=== PATIENT | male | born 1995 ===

== ENCOUNTER 2017-08-05 02:18 | Inpatient (IN) | payer OTHER ==
[2017-08-05] MEDS ORDERED: ONDANSETRON 4 MG/2 ML VIAL ONE (02:20)
[2017-08-05] MEDS ORDERED: MIDAZOLAM 2 MG/2 ML VIAL IVP ONE (02:25)
[2017-08-05] MEDS ORDERED: NS 1,000 ML IV ONE ×2 (02:25→02:30)
[2017-08-05] MEDS ORDERED: ONDANSETRON 4 MG/2 ML VIAL IVP ONE (02:30)
[2017-08-05] MEDS ORDERED: ETOMIDATE 40 MG/20 ML INJ IVP ONE (02:30)
[2017-08-05] MEDS ORDERED: SUCCINYLCHOLINE CHLORIDE 200 MG/10 ML VIAL IVP ONE (02:30)
[2017-08-05 02:35] LABS: % IMMATURE GRANULYOCYTES 0.4 % (0.0-1.1); ABSOLUTE IMMATURE GRANULOCYTES 0.05 10^3/uL (0.00-0.10); ADD DIFF? NO; ADD MORPH? NO; ADD SCAN? NO; ATYPICAL LYMPHOCYTE FLAG 10 (0-99); FRAGMENT RBC FLAG 0 (0-99); HEMATOCRIT 48.4 % (40.0-51.0); LEFT SHIFT FLG 0 (0-99); LIPEMIA HEMOLYSIS FLAG 90 (0-99); MEAN CELL HEMOGLOBIN 33.4 pg (27.9-34.1); MEAN CELL HEMOGLOBIN CONCENTR. 35.1 g/dL (32.4-36.7); MEAN CELL VOLUME 95.1 fL (81.5-99.8); MEAN PLATELET VOLUME 8.4 fL (8.7-11.7); PLATELET CLUMPS FLAG 0 (0-99); PLATELET COUNT 327 10^3/uL (150-400); RED BLOOD CELL COUNT 5.09 10^6/uL (4.40-6.38); RED CELL DISTRIBUTION WIDTH 11.6 % (11.5-15.2)
--- NOTE | 2017-08-05 02:38 | EDPHY ---
H & P HPI/ROS: HPI CHIEF COMPLAINT: Full trauma activation, GCS 3, unresponsive HISTORY OF PRESENT ILLNESS: This patient 22-year-old male, brought in by EMS as a full trauma activation. Per EMS report the patient was out drinking this evening and also abusing Adderall. He was witnessed by friends going to jump up and touch a sign or tree branches, when he jumped up to touch sign he fell forward and directly he hit his head on the ground. He has right eyebrow hematoma. Upon arrival to the emergency room he has a GCS at 6. He is agitated, combative. Does not follow commands. Will not stay still. He is highly intoxicated with alcohol smells of a vomit. There is vomit noted to be all over his clothes. He arrives in a cervical collar. +LOC. Upon arrival he has greeted in ER room 2 by myself as well as Dr. Ya. He is noted to be extremely agitated combative upon arrival. Due to airway protection, and need for emergency medical testing including CT scan head and neck, he was emergently intubated by myself using RSI medications. 20 mg IV etomidate, 100 mg of IV succinylcholine, and with direct laryngoscopy MAC 4 blade with direct visualization of the cords he was intubated with a 7.5 endotracheal tube. This tube was confirmed with humidified air, bilateral lung sounds, end-tidal change, and chest x-ray to confirm placement. Past Medical History: Unknown medical history Past Surgical History: Unknown surgical history Social History: Unknown but per EMS large amount of alcohol on Adderall this evening. Family History: Noncontributory ROS REVIEW OF SYSTEMS: Limited due to patient's presentation. Intoxication. Possible head injury.. Exam Constitutional GCS of less than 6, combative, agitated, does not follow commands triage nursing summary reviewed, vital signs reviewed Eyes normal conjunctivae and sclera, EOMI, Pupils: 5mm Right, 4mm left. HENT Head/neck: Right eyebrow hematoma present, no globe trauma on exam, no hemotympanum, moist mucus membranes, no epistaxis, neck supple/ no meningismus, no raccoon eyes. Face: Small <1cm through and through lower right sided lip lac. Respiratory clear to auscultation bilaterally, normal breath sounds, no respiratory distress, no wheezing. Cardiovascular rate normal, regular rhythm, no murmur, no edema, distal pulses normal. Gastrointestinal soft, non-tender, no rebound, no guarding, normal bowel sounds, no distension, no pulsatile mass. Genitourinary no CVA tenderness. Musculoskeletal no midline vertebral tenderness, full range of motion, no calf swelling, no tenderness of extremities, no meningismus, good pulses, neurovascularly intact. Skin pink, warm, & dry, no rash, hematoma right eyebrow Neurologic Agitated, combative, moves all 4 extremities equally, motor intact, sensory intact, CN II-XII intact, normal cerebellar, normal vision, normal speech. Psychiatric normal mood/affect. Heme/Lymph/Immune no lymphadenopathy. Differential Diagnosis: Includes but is not limited to in a particular order acute alcohol intoxication, drug intoxication, closed head injury, intracranial bleed, skull fracture, subdural, epidural, traumatic subarachnoid, cervical spine injury Medical Decision Making: Plan for this patient he was emergently intubated for airway protection, he had a negative fast exam, vital signs are stable. Plan on CT head without contrast and CT cervical spine without contrast for acute trauma. Re-evaluation: 0235AM: FAST EXAM: negative. ED x-ray chest one view: Endotracheal in good position above the mildred. Bilateral lung gallego appear fully inflated no pneumothorax no infiltrate. Good position of endotracheal tube. 0237: The patient's friends arrived in the emergency room they report that they just left the bar. 1 of them picked him up they were trying to hit tree branches when 1 of them picked him up he fell forward landing on his head. 0244: Patient is in CT scan with Dr. Ya at this time. Hemodynamically stable. He sedated. Intubated. On ventilator. Obtaining CT head and neck for trauma. He will come back from CT and then most likely go to ICU. Laceration Repair Procedure: Under sterile conditions, The patient had lidocaine with epinephrine used approximately 2ccs to local anesthetize the right lower lateral lip laceration through and through less than 1 cm Laceration. The wound was copiously irrigated with sterile fluid, the wound was explored for foreign bodies there were none visualized, the wound was explored with a sterile glove to the base. There are no deep structures involved, including no arterial injury. ONE interrupted 6.O PROLENE Suture were placed in this patient's laceration. Additionally, <1cm Inner-oral right lower lip lac, through-through ONE interrupted 6.O absorbable gut suture was placed, He had good close approximation of the wound edges. He Tolerated this well. 0330: CT scans of the head and neck called to me by Dr. Jimenez the patient has the following injuries Patient has a lateral wall maxillary sinus fracture, he has a superior lateral nondisplaced orbital fracture, additionally has orbital floor fracture on the right he does not have any contents that goes through the orbital floor fracture. 0334; Spoke with Neurosurgery. Dr. Santa with NeuroSurgery; patient has 2 punctate lesions on the temporal lobes these were equivocal on the CT scan. Notified by Dr. Jimenez that these are equivocal there is no significant intracranial bleed or shift. I have notified Neurosurgery about this. I have discussed this case with Trauma surgery and do not feel that Neurosurgery needs to emergently see this patient at this time. Will plan on admission to the ICU repeat CT scan in 4 hr. Neurosurgery to see in the morning. Additionally this patient has multiple facial fractures I will consult ENT. Does have a orbital floor fracture. There are no contents do this orbital floor will consult ENT for this. 0342: Dr. Buchanan: ENT consult. Will consult in the morning. Critical Care: Total Critical Care Time Spent Managing this Patient: 65 Minutes. This time was spent Exclusively with this patient. This Care was exclusive of procedures. The Organ System/life at risk was Full trauma activation, respiratory failure, alcohol intoxication This Patient was in Critical Condition because patient in critical condition due to respiratory failure, acute alcohol intoxication, facial fractures, closed head injury, intracranial bleed. Source: EMS Constitutional: Initial Vital Signs Heart Rate 94 08/05/17 03:47 Respiratory Rate 18 08/05/17 03:47 Blood Pressure 140/80 H 08/05/17 03:47 O2 Sat (%) 96 08/05/17 03:47 O2 Delivery Mode Nasal Cannula O2 (L/minute) 2 Allergies/Adverse Reactions: No Known Allergies Allergy (Unverified 08/05/17 02:49) Home Medications: Medication Instructions Recorded Herbals/Supplements -Info Only 1 ea PO DAILY 08/06/17 Medical Decision Making - Data Points Laboratory Results: Laboratory Results 08/05/17 02:25 08/05/17 02:25 Medications Given: Acetaminophen (Tylenol) 650 mg PO Q4HRS PRN PRN Reason: Pain, Mild/Fever, Can Take PO Stop: 02/01/18 21:49 Last Admin: 08/05/17 21:59 Dose: 650 mg Famotidine (Pepcid) 20 mg PO BID [facility] Stop: 02/02/18 09:14 Last Admin: 08/06/17 09:59 Dose: 20 mg Hydromorphone/Sodium Chloride (Hydromorphone) 0.4 mg IVP Q2H PRN PRN Reason: Pain, Severe Unable to Take PO Stop: 08/15/17 18:48 Last Admin: 08/05/17 20:47 Dose: 0.4 mg Ondansetron HCl (Zofran) 4 mg IVP Q4HRS PRN PRN Reason: Nausea/Vomiting, Can't Take PO Stop: 02/01/18 02:49 Last Admin: 08/05/17 18:15 Dose: 4 mg Discontinued Medications Chlorhexidine Gluconate (Peridex) 15 ml PO Q12@08,20 [facility] Stop: 02/01/18 07:59 Last Admin: 08/06/17 10:43 Dose: Not Given Etomidate (Etomidate) 20 mg IVP EDNOW ONE Stop: 08/05/17 02:31 Last Admin: 08/05/17 02:30 Dose: 20 mg Fentanyl (Sublimaze) 50 mcg IVP EDNOW ONE Stop: 08/05/17 02:50 Last Admin: 08/05/17 02:50 Dose: 50 mcg Sodium Chloride (Ns) 1,000 mls @ 0 mls/hr IV ONCE ONE PRN Reason: Wide Open Stop: 08/05/17 02:31 Last Admin: 08/05/17 03:15 Dose: 1,000 mls Sodium Chloride (Ns) 1,000 mls @ 0 mls/hr IV ONCE ONE; Wide Open PRN Reason: Protocol Stop: 08/05/17 02:26 Last Admin: 08/05/17 02:25 Dose: 1,000 mls Famotidine/Sodium Chloride (Pepcid 20 Mg (Premix)) 50 mls @ 200 mls/hr IV Q12HRS [facility] Stop: 02/01/18 08:59 Last Admin: 08/06/17 10:43 Dose: Not Given Fentanyl/Sodium Chloride (Fentanyl 10 Mcg/Ml (Premix)) 100 mls @ 0 mls/hr IV CONT LEEANN; Per Protocol PRN Reason: Protocol Stop: 08/15/17 02:59 Last Admin: 08/05/17 04:47 Dose: 100 mls Lactated Ringer's (Lr) 1,000 mls @ 125 mls/hr IV CONT LEEANN Stop: 02/01/18 02:59 Last Admin: 08/06/17 06:24 Dose: 1,000 mls Propofol (Diprivan 10 Mg/Ml (Premix)) 100 mls @ 0 mls/hr IV CONT LEEANN; Per Protocol PRN Reason: Protocol Stop: 02/01/18 02:59 Last Admin: 08/05/17 07:47 Dose: 100 mls Midazolam HCl (Versed) 4 mg IVP EDNOW ONE Stop: 08/05/17 02:26 Last Admin: 08/05/17 02:25 Dose: 4 mg Ondansetron HCl (Zofran) 4 mg IVP EDNOW ONE Stop: 08/05/17 02:31 Last Admin: 08/05/17 02:30 Dose: 4 mg Succinylcholine Chloride (Quelicin) 100 mg IVP EDNOW ONE Stop: 08/05/17 02:31 Last Admin: 08/05/17 02:30 Dose: 100 mg Departure - Departure Disposition: [facility] Inpatient Acute Clinical Impression: Respiratory failure Qualifiers: Chronicity: acute Respiratory failure complication: hypoxia Qualified Code(s): J96.01 - Acute respiratory failure with hypoxia Alcohol intoxication Qualifiers: Complication of substance-induced condition: uncomplicated Qualified Code(s): F10.920 - Alcohol use, unspecified with intoxication, uncomplicated Head injury Qualifiers: Encounter type: initial encounter Qualified Code(s): S09.90XA - Unspecified injury of head, initial encounter Lip laceration Qualifiers: Encounter type: initial encounter Qualified Code(s): S01.511A - Laceration without foreign body of lip, initial encounter Traumatic hematoma of forehead Qualifiers: Encounter type: initial encounter Qualified Code(s): S00.83XA - Contusion of other part of head, initial encounter Orbital fracture Qualifiers: Encounter type: initial encounter Fracture type: closed Qualified Code(s): S02.80XA - Fracture of other specified skull and facial bones, unspecified side , initial encounter for closed fracture Condition: Critical
[2017-08-05 02:46] LABS: ANION GAP 25 mEq/L (8-16); CALCIUM 9.7 mg/dL (8.5-10.4); CARBON DIOXIDE 19 mEq/l (22-31); CHLORIDE 109 mEq/L (97-110); CREATININE 1.1 mg/dL (0.7-1.3); ETHANOL SERUM 225 mg/dL (0-10); GLOMERULAR FILTRATION RATE > 60; GLUCOSE 135 mg/dL (70-100); POTASSIUM 4.9 mEq/L (3.5-5.2); SODIUM 153 mEq/L (134-144)
[2017-08-05 02:47] LABS: INR 1.01 (0.83-1.16); PROTIME(PATIENT) 13.5 SEC (12.0-15.0)
[2017-08-05] MEDS ORDERED: fentaNYL 100 MCG/2 ML INJ IVP ONE (02:49)
[2017-08-05] MEDS ORDERED: NALOXONE HCL 0.4 MG/ML INJ IVP PRN (02:50)
[2017-08-05] MEDS ORDERED: fentaNYL/NACL 100 ML IV SCH (03:00)
[2017-08-05 03:35] LABS: PHENCYCLIDINE URINE BCH < 6 ng/ml (NEGATIVE); PHENCYCLIDINE URINE BCH NEGATIVE (NEGATIVE); TETRAHYDROCANNABINOL URINE < 5 ng/mL (NEGATIVE); TETRAHYDROCANNABINOL URINE NEGATIVE (NEGATIVE)
[2017-08-05] MEDS: PROPOFOL/EMULSION 100 ML IV SCH ×2 (03:44→07:47)
--- NOTE | 2017-08-05 03:44 | GHP ---
[f rep st] HISTORY AND PHYSICAL DATE OF ADMISSION: 08/05/2017 CHIEF COMPLAINT: Full trauma activation fall. HISTORY OF PRESENT ILLNESS: The patient is a 22-year-old, who was drinking at some bars earlier this evening. As he was walking, his friends were jumping and hitting tree branches. At one point, one of his friends gave him a boost to hit a sign, when he landed on his feet and then fell forward and hit his head. He had loss of consciousness. He was brought in as a full trauma activation. Per report, he had unequal pupils. He was combative in the ER and was intubated. PAST MEDICAL HISTORY: Unobtainable. PAST SURGICAL HISTORY: Unobtainable. SOCIAL HISTORY: He does drink alcohol. There is question if he was abusing Adderall this evening as well. FAMILY HISTORY: Noncontributory. REVIEW OF SYSTEMS: Unable to be obtained. PHYSICAL EXAMINATION: VITALS: Reviewed and hemodynamically stable. NEURO: Initial GCS was 6. He was moving all extremities. HEENT: Normocephalic. His head has a large amount of dried blood and vomit on it. When I evaluated him, his pupils were equal and round. He did not have otorrhea or rhinorrhea. He has a through and through lower lip laceration on the right lower lip. Dentition grossly intact. He has right periorbital ecchymosis. NECK: Collar in place. No step-offs. BACK: No abrasions, no step-offs. LUNGS: Clear to auscultation bilaterally. No increased work of breathing. CARDIAC: Tachycardic. No edema ABDOMEN: He is soft, nontender, nondistended. EXTREMITIES: No obvious gross bony deformities. Excellent and equal strength prior to intubation. SKIN: No obvious rashes or abrasions. FAST exam performed by me, and there was no fluid between the liver and the kidney, none between the spleen and the kidney, the bladder was intact and full , and there was no pericardial effusion. FAST was negative. I also reviewed his chest x ray. ET tube above the mildred. No hemo or pneumothorax. IMPRESSION AND PLAN: The patient is a 22-year-old man, intoxicated, status post a fall from standing where he struck his head. He was intubated in the emergency room due to his GCS and being combative. We took him to the CT scan for a head CT and C-spine CT. The reads are pending. He does have a right orbital and maxillary fracture. He will be in the ICU. We will perform a urine drug intoxication. I am hopeful that he will be able to be extubated in the morning. Cog eval in the morning. Prelim read on CT with possible IPH - Dr. Santa to consult in the am Maxillary and orbital fracture - I will call Dr. Buchanan in the am May also need optho consult - no obvious injury. When extubated and cooperative , will be better to determine this Tertiary survey after extubation Lip lac repaired by Dr. Fernández. Continue swish and spit post extubation. Chromic sutures will fall out /[id number]/MODL MTDD
[2017-08-05] MEDS: LR 1,000 ML IV SCH ×3 (04:46→21:58)
[2017-08-05 04:57] LABS: BASE EXCESS -5.7 mEq/L (-2.5-2.5); BICARBONATE 18 mEq/L (22-26); MEASURED OXYGEN SATURATION 90 % (92-95); PCO2 32 mmHg (34-38); PO2 62 mmHg (65-75); TCO2 19 mEq/L (23-27)
[2017-08-05] MEDS ORDERED: ETOMIDATE 40 MG/20 ML INJ ONE (04:59)
[2017-08-05] MEDS ORDERED: fentaNYL 100 MCG/2 ML INJ ONE (04:59)
[2017-08-05] MEDS ORDERED: SUCCINYLCHOLINE CHLORIDE 200 MG/10 ML SYR IVP ONE (04:59)
[2017-08-05] MEDS ORDERED: MIDAZOLAM 2 MG/2 ML VIAL ONE ×2 (04:59→05:00)
[2017-08-05 05:00] LABS: O2 CONCENTRATIION 40 % (0-100); P/F RATIO 155 RATIO; SIMV YES
[2017-08-05 05:01] LABS: PATIENT RATE 16; PIP 15.5; PRESSURE SUPPORT 7
[2017-08-05] MEDS: FAMOTIDINE 20 MG/NACL 50 ML IV SCH ×2 (09:23→20:48)
[2017-08-05] MEDS: CHLORHEXIDINE GLUCONATE 15 ML UDL PO SCH ×2 (09:23→20:47)
--- NOTE | 2017-08-05 10:04 | GCON ---
[f rep st] CONSULTATION LINE MAINTAINER SECTION CONSULTATION REASON FOR ADMISSION: Multitrauma, acute respiratory failure, alcohol intoxication. HISTORY OF PRESENT ILLNESS: The patient is a 22-year-old white male with unknown past medical histor y. He apparently was drinking heavily. They were walking, jumping up and hitting tree branches. Ap parently, he was given a boost by one of his friends, landed on his feet and then fell forward, reynaldo ng on his head. He had loss of consciousness. He was brought to the emergency room via full trauma activation. He was subsequently intubated, placed on mechanical ventilation. All history is gleaned from the medical record. PAST MEDICAL HISTORY: Unobtainable. PAST SURGICAL HISTORY: Unobtainable. SOCIAL HISTORY: No history of tobacco use. Significant alcohol use. FAMILY HISTORY: Noncontributory. REVIEW OF SYSTEMS: A 10-point review of systems was attempted, but unable to be obtained. PHYSICAL EXAM: VITAL SIGNS: Blood pressure is 103/44, pulse 64, respirations 16, temperature 37, ox ygen saturation is 40% on current mechanical ventilation. GENERAL: He is a well-developed, well-nou rished, 22-year-old white male, who is sedated and on mechanical ventilation. HEENT: Eyes are PERRL A, EOMI. His right orbit is significantly bruised and swollen. NECK: The patient is in a hard C-co llar. Throat endotracheal tube is in good position. HEART: Regular rate and rhythm without murmurs , rubs, gallops. LUNGS: Clear to auscultation. No wheeze or rhonchi. ABDOMEN: Soft, nontender. Bowel sounds are present. EXTREMITIES: No clubbing, cyanosis, or edema. LABORATORIES: White count 12.7, hemoglobin 17, hematocrit 48, platelet count 327, INR is 1.01. Sodi um 153, potassium is 4.9, chloride 109, CO2 is 19, BUN is 18, creatinine 1.1, glucose is 135. Urine drug screen is positive for benzodiazepines, cocaine. Alcohol level is 225. Arterial blood gas, pH 7.37, pCO2 32, PO2 of 62, bicarb of 19, oxygen saturation 90%. This is on IMV of 16. Tidal volume 550, +5 of PEEP, +7 of pressure support 40%. Chest x-ray, interpreted by me, shows endotracheal tube is in good position. Otherwise, clear. CT s can of the head shows right-sided facial bone fractures. Possible foci of petechial hemorrhage. IMPRESSION: 1. Alcohol intoxication. 2. Closed head injury. 3. Orbital fractures. 4. Acute respiratory failure secondary to above. 5. Hypernatremia. 6. Mild respiratory alkalosis. RECOMMENDATIONS: 1. We will continue mechanical ventilation for now. We will decrease the rate at this time. 2. Continue current sedation. 3. We will assess the patient for extubation in the near future. 4. DVT and PE prophylaxis. 5. Stress ulcer prophylaxis. 6. Follow sodium closely. 35 minutes of critical care time spent with the patient. Case was discussed with Respiratory Therapy , Surgery and Nursing. /[id number]/MODL
--- NOTE | 2017-08-05 10:09 | GCON ---
[f rep st] CONSULTATION NEUROSURGERY CONSULTATION CHIEF COMPLAINT: Status post fall while intoxicated. HISTORY OF PRESENT ILLNESS: Much of the patient's medical history is obtained from the medical recor d as the patient is unable to provide. He is currently intubated and sedated. Per report, the patie nt is a 22-year-old male who was drinking at some bars earlier last night. He and his friends were j umping and trying to reach the tops of tree branches. His friends gave him a boost to jump and he la nded on his feet and fell forward and hit his head. He had loss of consciousness and was brought and is a full trauma activation. Per report, he had unequal pupils. He was combative in the ER and was intubated. His GCS was determined to be 6. PAST MEDICAL HISTORY/PAST SURGICAL HISTORY: Unobtainable. SOCIAL HISTORY: Positive for alcohol use. There was question if he was abusing Adderall that evenin g as well. FAMILY HISTORY: Unobtainable. REVIEW OF SYSTEMS: Unobtainable. PHYSICAL EXAMINATION: Blood pressure 103/44, heart rate 64, O2 saturation is 98%. He is intubated. Temperature is 37 Celsius. In general, this is a young male patient who is currently intubated on s edation. He has an ice pack over his right eye. His eyelid has significant periorbital edema and ec chymosis. The patient's pupils are equal, but nonreactive at about 2 mm. Respiratory therapy suctio dhara the patient and he withdrew with all 4 extremities and reached for his ET tube. He is currently not following any commands but is currently sedated. LABORATORY DATA: White blood cells 12.77, red blood cells 5.09, hemoglobin 17.0, hematocrit 48.4, MC V is 95.1, RDW 11.6, platelet count 327. Coagulation: PT is 13.5, INR is 1.01, APTT is 27.0. Blood gas: Temperature 36.3, pCO2 32, PO2 62, total carbon dioxide 19, pH 7.37, PO2 to FiO2 ratio 155, HC O3 18, O2 saturation 90, base excess -5.7, O2 concentration 40%, actual respiratory rate 16. Catering Staff Member ry: Sodium is 153, potassium 4.9, chloride 109, carbon dioxide 19, anion gap 25, BUN 18, creatinine 1.1. GFR greater than 60. Glucose 135, calcium 9.7. Toxicology negative for opiates, negative for barbiturates, negative for phencyclidine, negative for amphetamine. Benzodiazepine 749. Cocaine scr een 1251. Marijuana THC screen is negative. Alcohol level 225. IMAGING: CT of the cervical spine without contrast negative for fracture or soft tissue air adjacent to the right clavicle of uncertain etiology or significance. CT of the head without contrast, right -sided facial bone fractures as detailed above. Possible foci of petechial hemorrhage with followup CT recommended. IMPRESSION: This is a 22-year-old male patient status post fall while intoxicated with questionable brain hemorrhage. PLAN: The patient was seen evaluated by both Dr. Santa and myself this morning. Dr. Santa has rev iewed the patient's CT of the head without contrast. He does not feel that there is any significant abnormality or any true hemorrhage observed on the head CT. Given the patient's young age we would h old on any further head CTs at this time. We would like to let the patient sober up and work toward extubation and examine him more thoroughly at that time. Once the patient is awake, he should be see n by Physical Therapy, Occupational Therapy, and also Speech Therapy. Neurosurgery will continue to follow along this patient. Thank you for the consultation. Please contact the neurosurgery service with any additional questions or concerns. /[id number]/MODL
--- NOTE | 2017-08-05 10:38 | SOAPPROG ---
SOAP Progress Note Assessment/Plan: Assessment: 22-year-old male status post fall resulting in the maxillary/orbital wall fracture, closed head injury, lip laceration, alcohol intoxication, positive for cocaine Physical exam Intubated and sedated C-collar in place No obvious trauma upon inspection of extremities chest abdomen Chest CTA bilaterally Abdomen soft nontender Plan: Patient seen examined by Dr. Bacon Plan is for weaning sedation later today and extubation Maxillary/orbital wall fracture Dr. Buchanan to see Closed head injury neurosurgery has seen the patient in determine no definite bleed Lip laceration sutured with chromic sutures 08/05/17 10:36 Objective: Vital Signs Temp Pulse Resp BP Pulse Ox 37.2 C 63 16 114/47 L 98 08/05/17 09:00 08/05/17 09:00 08/05/17 09:00 08/05/17 09:00 08/05/17 09:00 08/04/17 08/05/17 08/06/17 05:59 05:59 05:59 Intake Total 2319.6 Output Total 1250 115 Balance 1069.6 -115 PT 13.5 SEC (12.0-15.0) 08/05/17 02:25 INR 1.01 (0.83-1.16) 08/05/17 02:25 ICD10 Worksheet Patient Problems: Problems Problem Status Onset Alcohol intoxication Acute Head injury Acute Lip laceration Acute Orbital fracture Acute Respiratory failure Acute Traumatic hematoma of forehead Acute
[2017-08-05 12:10] LABS: CALCULATED OXYGEN SATURATION 99 % (92-95); O2 CONCENTRATIION 40 % (0-100)
[2017-08-05 12:22] LABS: BASE EXCESS -3.2 mEq/L (-2.5-2.5); BICARBONATE 22 mEq/L (22-26); MEASURED OXYGEN SATURATION 93 % (92-95); PCO2 40 mmHg (34-38); PO2 67 mmHg (65-75); TCO2 23 mEq/L (23-27)
[2017-08-05 12:23] LABS: O2 CONCENTRATIION 40 % (0-100); P/F RATIO 168 RATIO; PATIENT RATE 16; SIMV YES
[2017-08-05 12:24] LABS: PRESSURE SUPPORT 10
[2017-08-05] MEDS: ONDANSETRON 4 MG/2 ML VIAL IVP PRN ×2 (13:14→18:15)
--- NOTE | 2017-08-05 15:39 | ASMTCMCOM ---
CM Note CM Note Notes: Patient fell while intoxicated and suffered facial fractures and a closed head injury. Neurosurgery, trauma, and bottling equipment sales representative have assessed patient. He was extubated today and is doing fine. Patient is a student at , his father is here from [place]. His d/c needs are TBD; PT/OT/SENIOR PLANNING MANAGER to evaluate. Case Management will follow. Date Signed: 08/05/2017 03:39 PM Electronically Signed By:Maren De Los Santos RN
--- NOTE | 2017-08-05 15:48 | NEUSURGPN ---
Assessment/Plan: A: 22 yo M s/p fall while intoxicated with questionable ICH Plan: - I came to check on Jonhy this afternoon to see if we could clear him from his cervical collar. He was too sleepy to do this. He did follow all commands and was oriented to person/place/time - Will recheck in AM to see if we can clear clinically - Discussed with patient's father at bedside and he expressed understanding of the plan Subjective: Pt resting in bed. States he is tired. Objective: Sleepy but awakens easily Oriented x 3 MAEx4 Motor 5/5 BUE/BLE R eye with ecchymosis/edema +LT Urinary Catheter in Place: No Catheter Insertion Date: 08/05/17 - Physician Discussed Patient with DrAdri: Kiet Neurosurgery Physical Exam - Vitals, I&O, Labs I and O 08/04/17 08/05/17 08/06/17 05:59 05:59 05:59 Intake Total 2319.6 46.2 Output Total 1250 325 Balance 1069.6 -278.8 Weight 66.3 kg Intake: IV Intake (ml) 500 IV Infused (ml) 1819.6 46.2 Lr 1,000 ml @ 125 mls/hr 260 IV CONT LEEANN Rx#: [id number] Propofol/Emulsion 100 ml 52.3 46.2 @ Per Protocol IV CONT LEEANN Rx#:[id number] fentaNYL/NACL 100 ml @ 7.3 Per Protocol IV CONT LEEANN Rx#:[id number] Output: Urine (ml) 850 325 Catheter 500 325 OG Tube Output (ml) 400 Large Bore (>12 [place]) 400 Oral Stomach [place] Sump 16 [place] Vital Signs Temp Pulse Resp BP Pulse Ox 38.0 C 75 16 122/49 H 93 08/05/17 13:00 08/05/17 15:00 08/05/17 15:00 08/05/17 15:00 08/05/17 15:00 ICD10 Worksheet Patient Problems: Problems Problem Status Onset Alcohol intoxication Acute Head injury Acute Lip laceration Acute Orbital fracture Acute Respiratory failure Acute Traumatic hematoma of forehead Acute
[2017-08-05] MEDS ORDERED: HYDROmorphone HCL/NS/PF 0.4 MG/2 ML SYR IVP PRN (18:49)
[2017-08-05] MEDS ORDERED: ACETAMINOPHEN 325 MG TAB ONE (21:56)
[2017-08-05] MEDS: ACETAMINOPHEN 325 MG TAB PO PRN (21:59)
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
[2017-08-06] MEDS: LR 1,000 ML IV SCH (06:24)
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
--- NOTE | 2017-08-06 09:39 | PDINTPN ---
Banquet Line Cook Progress Note Assessment/Plan: Assessment/Plan: * Alcohol intoxication * Status post fall * Facial fractures-nonsurgical per ENT * Petechial hemorrhages-stable. No intervention per Neurosurgery * Respiratory-stable off mechanical ventilation * Disposition-will discuss with trauma service anticipate possible discharge home * PT/OT * Out of bed * Begin ambulation Subjective: Resting comfortably. Somewhat somnolent. Objective: Vital Signs Temp Pulse Resp BP Pulse Ox 37.1 C 85 16 116/74 97 08/06/17 00:00 08/06/17 06:00 08/06/17 06:00 08/06/17 04:00 08/06/17 06:00 08/05/17 08/06/17 08/07/17 05:59 05:59 05:59 Intake Total 1974.6 Output Total 40 Balance 1934.6 PT 13.5 SEC (12.0-15.0) 08/05/17 02:25 INR 1.01 (0.83-1.16) 08/05/17 02:25 - Time Spent With Patient Time Spent With Patient: 25 min of time spent with patient, over 1/2 involved with counseling or coordination of care Physical Exam - Physical Exam General Appearance: alert, no apparent distress EENT: PERRL/EOMI, other (Bruising about right orbit) Neck: non-tender Respiratory: chest non-tender, lungs clear, normal breath sounds Cardiac/Chest: normal peripheral pulses, regular rate, rhythm Peripheral Pulses: 2+: carotid (R), carotid (L), femoral (R), femoral (L), dorsalis-pedis (R), dorsalis-pedis (L) Abdomen: normal bowel sounds, non-tender, soft Male Genitalia: deferred Rectal: deferred Skin: normal color, warm/dry Extremities: normal range of motion, non-tender, normal inspection, normal capillary refill Neuro/Psych: no motor/sensory deficits, alert, normal mood/affect, oriented x 3 ICD10 Worksheet Patient Problems: Problems Problem Status Onset Alcohol intoxication Acute Head injury Acute Lip laceration Acute Orbital fracture Acute Respiratory failure Acute Traumatic hematoma of forehead Acute
[2017-08-06] MEDS: FAMOTIDINE 20 MG TAB PO SCH ×2 (09:59→21:52)
[2017-08-06] MEDS: FAMOTIDINE 20 MG/NACL 50 ML IV SCH (10:43)
[2017-08-06] MEDS: CHLORHEXIDINE GLUCONATE 15 ML UDL PO SCH (10:43)
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
[2017-08-07 05:19] VITALS: RESP 12
[2017-08-07 08:03] VITALS: BP 111/50; PULSE 54; TEMP 98.3; O2SAT 97
[2017-08-07] MEDS: ACETAMINOPHEN 325 MG TAB PO PRN (08:26)
[2017-08-07] MEDS: FAMOTIDINE 20 MG TAB PO SCH (08:26)
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
== END 2017-08-07 10:57 | disposition home or self-care (01) | DRG 86 ==
LOC: EDBD 02:18 → F2N 04:17 → OBSVTOIN 15:56 → F2N 08-06 17:21
PROVIDERS: ADMIT Surgery; ATTEND Surgery
DX: S06.891A Other specified intracranial injury with loss of consciousness of 30 minutes or less, initial encounter (principal); F10.221 Alcohol dependence with intoxication delirium; F15.121 Other stimulant abuse with intoxication delirium; S02.40CA Maxillary fracture, right side, initial encounter for closed fracture; S02.31XA Fracture of orbital floor, right side, initial encounter for closed fracture; S02.81XA Fracture of other specified skull and facial bones, right side, initial encounter for closed fracture; S01.511A Laceration without foreign body of lip, initial encounter; R40.2432 Glasgow coma scale score 3-8, at arrival to emergency department; W17.89XA Other fall from one level to another, initial encounter; Y92.89 Other specified places as the place of occurrence of the external cause; Y93.83 Activity, rough housing and horseplay; Y90.7 Blood alcohol level of 200-239 mg/100 ml
CPT/HCPCS: 80305; 80307; 92507-GN; 92523-GN; 96374; 97116-GP; 97161-GP; 97165-GO; 97535-GO; G0480; J0330; J1170; J2250; J2405; J2704; J3010; L0174